=== PATIENT | female | born 1950 | race Caucasian/White ===

== ENCOUNTER 2020-04-24 02:00 | Observation (INO) | payer MEDICARE, OTHER ==
[~2020-04-24] VITALS: Ht 165.1 cm; Wt 61.4 kg
[~2020-04-24 02:00] MED LIST: ASPI81TA45 PO; CARV3.1212 PO; NITR0.4T28 SL; PROG200C10 PO; ROSU10TA2 PO; SPIR25TA PO; TELM1TAB3 PO; TELM40TA PO; TICA90TA PO; [UNRECOGNIZED DRUG - CODE] TD
--- NOTE | 2020-04-24 02:18 | NUR ---
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 MEDS HELD AT THIS TIME.
[2020-04-24] MEDS ORDERED: ONDANSETRON 2MG/ML, 2ML IVPush ONE (02:30)
[2020-04-24] MEDS ORDERED: SODIUM CHLORIDE FLUSH 10ML SYR IVF ONE (02:30)
[2020-04-24] MEDS ORDERED: ASPIRIN 81 MG TABLET CHEW PO ONE (02:30)
[2020-04-24] MEDS ORDERED: HEPARIN 5,000 UNITS/ML, 1ML IV ONE (02:30)
[2020-04-24] MEDS ORDERED: HEPARIN 25,000 UNITS/250ML PMX 250 ML IV PRN (02:30)
[2020-04-24] MEDS ORDERED: NITROGLYCERIN SINGLE TAB 0.4 MG SL PRN (02:30)
[2020-04-24] MEDS ORDERED: MORPHINE SULFATE 4 MG/ML, 1ML IVPush PRN (02:30)
[2020-04-24 02:34] LABS: BASOPHILS % (AUTO) 0 % (0-1); EOSINOPHILS # (AUTO) 0.03 x10^3/uL (0-0.4); EOSINOPHILS % (AUTO) 0 % (1-7); LYMPHOCYTES # (AUTO) 0.78 x10^3/uL (1-3.4); LYMPHOCYTES % (AUTO) 8 % (22-44); MD NO; MEAN CORPUSCULAR HEMOGLOBIN 31.6 pg (27.0-34.8); MEAN CORPUSCULAR HGB CONC 33.4 g/dL (32.4-35.8); MEAN PLATELET VOLUME 8.4 fL (7.4-10.4); MONOCYTES # (AUTO) 0.53 x10^3/uL (0.2-0.8); MONOCYTES % (AUTO) 5 % (2-9); NEUTROPHILS # (AUTO) 8.86 x10^3/uL (1.8-6.8); NEUTROPHILS % (AUTO) 87 % (42-75); PLATELET COUNT 249 x10^3/uL (130-400); RED BLOOD COUNT 4.62 x10^6/uL (3.82-5.3); RED CELL DISTRIBUTION WIDTH 13.1 % (9.6-15.2)
[2020-04-24 02:42] LABS: INTERNATIONAL NORMALIZED RATIO 1.02 (0.93-1.1); PROTHROMBIN TIME 10.5 Seconds (9.6-11.5)
[2020-04-24] MEDS ORDERED: ASPIRIN 81 MG TABLET CHEW ONE (02:42)
[2020-04-24] MEDS ORDERED: HEPARIN 5,000 UNITS/ML, 1ML ONE (02:42)
[2020-04-24] MEDS ORDERED: ONDANSETRON 2MG/ML, 2ML ONE (02:43)
[2020-04-24] MEDS ORDERED: HEPARIN 25,000 UNITS/250ML PMX 250 ML ONE (02:43)
[2020-04-24 02:44] LABS: ALANINE AMINOTRANSFERASE 27 U/L (12-78); ALBUMIN 3.1 g/dL (3.4-5.0); ANION GAP 5 mmol/L (5-15); CALCIUM 8.4 mg/dL (8.5-10.1); CHLORIDE 111 mmol/L (98-107); CREATININE 0.77 mg/dL (0.55-1.02)
[2020-04-24 02:48] LABS: ALKALINE PHOSPHATASE 53 U/L (45-117); BILIRUBIN,TOTAL 0.5 mg/dL (0.2-1.0); TOTAL PROTEIN 6.7 g/dL (6.4-8.2)
[2020-04-24 02:50] LABS: TROPONIN I 0.406 ng/mL (0.000-0.045)
--- NOTE | 2020-04-24 02:58 | NUR ---
very pleasnt lady, denies chest pain at this time, denies nausea, defers zofran and ntg. Heparing started and verified by two RNS
[2020-04-24] MEDS ORDERED: ONDANSETRON 2MG/ML, 2ML IVPush PRN (04:30)
[2020-04-24] MEDS ORDERED: NITROGLYCERIN 0.4 MG BOTTLE (25 TABS) SL PRN (04:30)
[2020-04-24] MEDS ORDERED: ACETAMINOPHEN 325 MG TABLET PO PRN (04:30)
[2020-04-24] MEDS ORDERED: morphine SULFATE 10 MG/ML, 1ML IV PRN (04:30)
[2020-04-24] MEDS: CARVEDILOL 3.125 MG TABLET PO SCH ×2 (06:00→18:12)
[2020-04-24] MEDS: ASPIRIN 81 MG TABLET EC PO SCH (06:00)
--- NOTE | 2020-04-24 06:09 | NUR ---
PT RESTING COMFORTABLY IN BED. MONITORS IN PLACE, HEPARIN INFUSING
[2020-04-24] MEDS ORDERED: ASPIRIN 81 MG TABLET EC ONE (06:26)
[2020-04-24] MEDS ORDERED: CARVEDILOL 3.125 MG TABLET ONE (06:26)
--- NOTE | 2020-04-24 06:37 | NUR ---
PT AMBULATED TO RESTROOM WITH STEADY GAIT
--- NOTE | 2020-04-24 06:52 | NUR ---
REPORT RECEIVED FROM DILLON ARELLANO FOR TRANSFER OF CARE AT PATIENT BEDSIDE.
[2020-04-24] MEDS ORDERED: HEPARIN 5,000 UNITS/ML, 1ML IV PRN (07:00)
[2020-04-24 07:07] LABS: TROPONIN I 0.378 ng/mL (0.000-0.045)
--- NOTE | 2020-04-24 07:16 | NUR ---
PATIENT RESTING IN [facility], CONNECTED TO CONTROL CLERK REPAIRS. HEPARIN DRIP RUNING AT 800 UNITS/HR, CALL LIGHT WITHIN REACH, SIDE RAILS UP X2, NO FURTHER NEEDS AT THIS TIME.
--- NOTE | 2020-04-24 08:07 | NUR ---
MEDICATIONS REQUESTED FROM PHARMACY.
[2020-04-24] MEDS: TICAGRELOR 90 MG TABLET PO SCH ×2 (08:25→20:48)
[2020-04-24] MEDS: SPIRONOLACTONE 25 MG TABLET PO SCH (08:25)
[2020-04-24] MEDS ORDERED: LOSARTAN 50MG TABLET PO SCH (09:00)
--- NOTE | 2020-04-24 09:04 | NUR ---
PATIENT'S ANTI-XA=0.36, PER PROTOCOL NO CHANGES TO RATE. NEXT ANTI-XA ORDERED FOR 6 HOURS. CONTINUE HEPARIN DRIP AT 800 UNITS/HR. PATIENT LYING IN GURNEY, CONNECTED TO LICENSED CLINICAL PSYCHOLOGIST, CALL LIGHT WITHIN REACH, SIDE RAILS UP X2, NO FURTHER NEEDS AT THIS TIME.
--- NOTE | 2020-04-24 09:23 | NUR ---
SBAR GIVEN TO DILLON TERRY ON CARDIAC TELE.
[2020-04-24 10:13] VITALS: BP 96/64
[2020-04-24] MEDS ORDERED: FUROSEMIDE 20 MG/2 ML IV ONE (11:00)
[2020-04-24 12:32] LABS: TROPONIN I 0.328 ng/mL (0.000-0.045)
[2020-04-24 13:00] VITALS: BP 103/70
[2020-04-24 20:45] VITALS: BP 103/67
[2020-04-24] MEDS ORDERED: ATORVASTATIN 40 MG TABLET PO SCH (21:00)
[2020-04-24] MEDS ORDERED: PROGESTERONE 100 MG CAPSULE PO SCH (21:00)
[2020-04-24] MEDS ORDERED: ESTRADIOL 0.05 MG/24 HR PATCH TD SCH (22:00)
[2020-04-25 04:00] VITALS: BP 105/70
[2020-04-25 05:21] LABS: ANION GAP 6 mmol/L (5-15); CALCIUM 8.7 mg/dL (8.5-10.1); CHLORIDE 110 mmol/L (98-107)
[2020-04-25 05:27] LABS: CREATININE 0.75 mg/dL (0.55-1.02)
[2020-04-25] MEDS: ASPIRIN 81 MG TABLET EC PO SCH (06:02)
[2020-04-25] MEDS: CARVEDILOL 3.125 MG TABLET PO SCH (06:02)
[2020-04-25 07:33] VITALS: BP 106/71
[2020-04-25] MEDS: SPIRONOLACTONE 25 MG TABLET PO SCH (08:48)
[2020-04-25] MEDS: TICAGRELOR 90 MG TABLET PO SCH (08:49)
[2020-04-25] MEDS ORDERED: LOSARTAN 25MG TABLET PO SCH (09:00)
[2020-04-25] MEDS ORDERED: FUROSEMIDE 20 MG TABLET PO SCH (09:30)
[2020-04-25] MEDS ORDERED: FURO20TA3 PO (11:49)
[2020-04-25] MEDS ORDERED: LOSA25TA25 PO (11:49)
[2020-04-25 12:43] VITALS: BP 109/75
== END 2020-04-25 13:10 | disposition home or self-care (01) ==
LOC: ED 03:07 → EDIP 03:15 → INTOOBSV 03:15 → 5SO 09:58
PROVIDERS: ADMIT Family Medicine; ATTEND Family Medicine
DX: R07.9 Chest pain, unspecified (principal); I11.0 Hypertensive heart disease with heart failure; E78.5 Hyperlipidemia, unspecified; D72.829 Elevated white blood cell count, unspecified; I25.5 Ischemic cardiomyopathy; I50.43 Acute on chronic combined systolic (congestive) and diastolic (congestive) heart failure; I21.3 ST elevation (STEMI) myocardial infarction of unspecified site; I08.3 Combined rheumatic disorders of mitral, aortic and tricuspid valves; I25.10 Atherosclerotic heart disease of native coronary artery without angina pectoris; J43.9 Emphysema, unspecified; Z95.5 Presence of coronary angioplasty implant and graft
CPT/HCPCS: 36415; 71045; 80048; 80053; 83880; 84484; 85025; 85520; 85610; 85730; 93005; 93306; 96365; 96366; 96375; 96376; 99291; G0378; J1644; J1940